=== PATIENT | female | born 1955 | race Caucasian/White ===

== ENCOUNTER 2025-03-15 06:09 | Day surgery (SDC) | payer OTHER, SELFPAY ==
[2025-03-01 09:29] VITALS: BMI 21.4
[2025-03-01 10:54] LABS: % Basophils 0.6 % (0-2); % Eosinophils 4.4 % (0-6); % Immature Granulocytes 0.2 % (0-0.5); % Lymphocytes 28.6 % (20.5-51.1); % Monocytes 10.3 % (1.7-9.3); % Neutrophils 55.9 % (42.2-75.2); Absolute Eosinophils 0.2 10^3/uL (0-0.7); Absolute Lymphocytes 1.4 10^3/uL (1.2-3.4); Absolute Monocytes 0.5 10^3/uL (0.1-0.6); Absolute Neutrophils 2.8 10^3/uL (1.4-6.5); Hematocrit 37.1 % (37.0-47.0); Hemoglobin 12.1 g/dL (12.0-16.0); Mean Corp Hgb Conc. 32.6 g/dL (33.0-37.0); Mean Corpuscular Hgb 32.8 pg (27.0-31.0); Mean Corpuscular Volume 100.5 fL (81.0-99.0); Mean Platelet Volume 9.2 fL (7.4-10.4); Nucleated Red Blood Cells % 0 %; Platelet Count 266 10^3/uL (130-400); Red Blood Cell Count 3.69 10^6/uL (4.20-5.40); Red Cell Dist. Width 12.8 % (11.5-14.5)
[2025-03-01 11:26] LABS: Urine Albumin Negative (Neg - Trace); Urine Bilirubin Negative (Negative); Urine Character Clear (Clear); Urine Color Yellow; Urine Glucose Negative (Negative); Urine Ketone Negative (Negative); Urine Leukocyte Negative (Negative); Urine Nitrite Negative (Negative); Urine Occult Blood Negative (Negative); Urine Urobilinogen Negative (Neg - 1+)
[2025-03-01 14:04] LABS: Blood Urea Nitrogen 13 mg/dl (7-17); Calcium 9.3 mg/dl (8.4-10.2); Carbon Dioxide 24 mmol/L (22-30); Chloride 109 mmol/L (98-107); Estimated Creatinine Clearance 69 ml/min; Glucose 97 mg/dl (70-99); Potassium 4.6 mmol/L (3.5-5.1); Sodium 141 mmol/L (135-145); eGFR > 60.00
--- NOTE | 2025-03-09 15:18 | PTCARENOTE ---
Abn ECG, Dr. Slater made aware, no further interventions requested.
[2025-03-15] VITALS (11 sets, daily range): BP systolic 89–125; BP diastolic 48–68; BMI 21.4
[2025-03-15] MEDS: NORMOSOL-R/PLASMALYTE-A 1000 IV (06:54)
[2025-03-15] MEDS: SUBLIMAZE 50 MCG IV ×2 (09:02→09:16)
[2025-03-15] MEDS: TYLENOL 650 MG PO (10:11)
[2025-03-15] MEDS: BENADRYL 50 MG PO (10:11)
[2025-03-15] MEDS: TORADOL 15 MG IV (10:22)
[2025-03-15] MEDS: ROXICODONE 5 MG PO (10:46)
== END 2025-03-15 11:35 | disposition home or self-care (01) ==
LOC: SDS 06:09
PROVIDERS: ATTENDING PHYSICIAN Urology
DX: T83.190A Other mechanical complication of urinary electronic stimulator device, initial encounter (principal); Y73.2 Prosthetic and other implants, materials and accessory gastroenterology and urology devices associated with adverse incidents; N39.41 Urge incontinence; R33.9 Retention of urine, unspecified; N30.10 Interstitial cystitis (chronic) without hematuria; M62.89 Other specified disorders of muscle; N31.9 Neuromuscular dysfunction of bladder, unspecified
CPT/HCPCS: 64590; 64561; 36415; 72170; 76000; 80048; 81003; 85025; 87086; 87088; 87186; 93005; C1767; C1778; C1787; L8681